=== PATIENT | female | born 2000 | race Caucasian/White ===

== ENCOUNTER → 2021-06-19 | Outpatient (CLI) | payer BC ==
[2021-06-19 12:24] LABS: HEMOGLOBIN 12.9 gm/dl (12.3-15.3); RED BLOOD COUNT 4.76 M/UL (4.00-5.10); WHITE BLOOD COUNT 4.8 K/UL (4.5-11.0)
[2021-06-19 17:06] LABS: BUN/CREATININE RATIO 11 (0-10)
[2021-06-20 08:14] LABS: VITAMIN D, 25-HYDROXY 27.6 ng/mL (30.0-100.0)
== END ==
LOC: LAB 11:39
PROVIDERS: Nurse Practitioner Family
DX: D50.9 Iron deficiency anemia, unspecified (principal); E55.9 Vitamin D deficiency, unspecified; R53.83 Other fatigue
CPT/HCPCS: 36415; 80053; 80061; 82607; 82728; 83540; 83550; 84436; 84443; 85027